=== PATIENT | female | born 1980 | race Caucasian/White ===

== ENCOUNTER → 2018-08-20 16:52 | Outpatient (CLI) | payer OTHER, SELFPAY ==
--- NOTE | 2018-08-20 16:55 | CT_ITS ---
STUDY: CT ABDOMEN AND PELVIS WITH AND WITHOUT CONTRAST REASON FOR EXAM: Female, 38 years old. Hematuria RADIATION DOSAGE (If Supplied By Facility): CTDIvol = ( 14.16 ) mGy, DLP = ( 1857.71 ) mGycm TECHNIQUE: Transaxial images were obtained from the dome of the diaphragm to the symphysis pubis without oral contrast. 100 ml of Isovue 300 contrast was administered. Sagittal and coronal images were reconstructed. # of Images: 572 Individualized dose optimization techniques were used for this CT. COMPARISON: None. FINDINGS: The visualized lung bases are unremarkable. The visualized portions of the heart are within normal limits. There are no calcified gallstones present. The liver, spleen, pancreas and adrenal glands are within normal limits. There are no urinary calculi. There is no hydronephrosis. There is symmetric enhancement and excretion within the kidneys following contrast administration. There are no focal renal lesions. Urinary bladder is unremarkable. There is no bowel obstruction or inflammation. The appendix is normal. There is no abdominal or pelvic free air, free fluid or lymphadenopathy. The aorta is normal in caliber. There are no destructive osseous lesions. CT/CT Abd/Pelvis W/WO Contrast IMPRESSION: No cause for patient's hematuria identified on this study. Electronically Signed: Mikie Simmons, at 16:55 EDT Tel , Service support ,
== END ==
PROVIDERS: Family Provider Preventive Medicine Occupational Medicine; PCP Preventive Medicine Occupational Medicine; Referring Provider Urology; Visit Provider Urology
DX: R31.9 Hematuria, unspecified (principal)
CPT/HCPCS: 74178; Q9967